=== PATIENT | female | born 1970 | race Caucasian/White ===

== ENCOUNTER 2018-01-10 23:30 | Observation (INO) ==
[2018-01-11] MEDS ORDERED: Pantoprazole Inj 80 MG in Sodium Chlor 0.9% Inj 35 ML IV.SIG ONE (04:20)
[2018-01-11] MEDS ORDERED: Morphine Sulfate Inj 2 MG/ML Vial IV.PUSH PRN (04:21)
[2018-01-11] MEDS ORDERED: Morphine Inj 4 MG/ML Vial IV.PUSH PRN (04:21)
[2018-01-11] MEDS ORDERED: Naloxone Inj 0.4 MG/ML Vial IV.PUSH PRN (04:21)
[2018-01-11] MEDS: Morphine Inj 4 MG/ML Vial IV.PUSH PRN ×2 (04:33→08:26)
[2018-01-11] MEDS: Piperacil/Tazo 4.5 GM Premix 4.5 GM/100 ML BAG IV.SIG SCH ×4 (04:49→22:51)
[2018-01-11] MEDS: Sod Chloride 0.9% Inj 1,000 ML IV.CONT SCH ×2 (05:16→14:42)
[2018-01-11] MEDS ORDERED: HYDROmorphone PF Inj 2 MG/ML Vial IV.PUSH ONE (05:20)
--- NOTE | 2018-01-11 10:22 | P.HP ---
History of Present Illness Service: Hospitalist Primary Care Physician: UNKNOWN Chief Complaint: Abdominal pain History of Present Illness: Ms. Madera a pleasant 47-year-old female with a history of multiple intra- abdominal surgery including gastric bypass, cholecystectomy, appendectomy who presented to the emergency department in [place] due to right lower quadrant abdominal pain radiating to her back. She usually has persistent chronic back pain and she follows up with pain management physician in the outpatient setting. However day prior to this admission, patient started having right lower quadrant abdominal pain. She had some nausea but no vomiting. No hematemesis, melena or hematochezia. Her last bowel movement was 2 days prior to this admission. No fever or chills. She denies any chest pain, shortness of breath. No changes in bladder habits. CT abdomen pelvis on 01/11/2018 shows small amount of focal air in the anterior upper abdomen either within decompressed segments of small bowel or small foci of free air. General surgery was consulted. Patient was admitted to the main hospital. Past medical history: Chronic back pain GERD Past surgical history: Gastric bypass surgery, cholecystectomy, appendectomy, hernia repair Social history: Patient smokes about 1 pack/week. She denies using illicit drugs or alcohol. Family history: Mother had hypothyroidism. Review of Systems All other systems reviewed negative except as stated in HPI [facility] - History History Provided By: Patient - Medical History Medical History: Medical History (Last Reviewed 01/10/18 @ 23:38 by Chace Bryant RN) Anemia Bile duct stone Complications of gastric bypass surgery Fistula Inguinal hernia - Surgical History Surgical History: Surgical History (Last Reviewed 01/10/18 @ 23:38 by Chace Bryant RN) Gastric bypass status for obesity History of partial gastrectomy Hx of appendectomy Hx of inguinal hernia repair - Tobacco History Second Hand Smoke Exposure: Yes Tobacco Use In Past 30 Days: Yes Smoking Status: Current every day smoker Tobacco Type: Cigarettes - Alcohol History How Often Do You Have a Drink Containing Alcohol: Never - Substance Use History Substance History: No History of Abuse Medications and Allergies Active Medications: Active Medications Sodium Chloride (Ns Inj) 1,000 mls @ 100 mls/hr IV.CONT .Q10H ABDI Last Admin: 01/11/18 05:16 Dose: 100 mls/hr Piperacillin/Tazobactam/Dextrose (Zosyn 4.5 Gm Premix) 4.5 gm in 100 mls @ 200 mls/hr IV.SIG Q6H [facility] Last Infusion: 01/11/18 07:00 Dose: Infused Morphine Sulfate (Morphine Inj) 4 mg IV.PUSH Q3H PRN PRN Reason: PAIN 6-10;IF UNABLE TO TAKE PO Last Admin: 01/11/18 08:26 Dose: 4 mg Morphine Sulfate (Morphine Inj) 4 mg IV.PUSH Q3H PRN PRN Reason: BREAKTHROUGH PAIN Morphine Sulfate (Morphine Inj) 2 mg IV.PUSH Q3H PRN PRN Reason: PAIN 3-5; IF UABLE TO TAKE PO Naloxone HCl (Narcan Inj) 0.4 mg IV.PUSH UNSCH PRN PRN Reason: SEE LABEL COMMENTS Ondansetron HCl (Zofran Inj) 4 mg IV.PUSH Q6H PRN PRN Reason: NAUSEA OR VOMITING Last Admin: 01/11/18 04:32 Dose: 4 mg Ondansetron HCl (Zofran Odt) 4 mg PO Q6H PRN PRN Reason: NAUSEA OR VOMITING Pantoprazole Sodium (Protonix Inj) 40 mg IV.PUSH Q12H [facility] Allergies Allergy/AdvReac Type Severity Reaction Status Date / Time ketorolac Allergy Unknown WELTS Verified 01/10/18 23:33 NSAIDS (Non-Steroidal Allergy Anaphylaxis Verified 01/10/18 23:33 Anti-Inflamma promethazine [From Phenergan] Allergy Anaphylaxis Verified 01/10/18 23:33 Home Medications Medication Instructions Recorded Confirmed Type hydrocodone-acetaminophen 1 tab PO Q6H PRN MDD 300 12/13/17 01/10/18 History pantoprazole [Protonix] 40 mg PO DAILY 12/13/17 01/10/18 History venlafaxine [Effexor XR] 225 mg PO DAILY 12/13/17 01/10/18 History topiramate [Topamax] 100 mg PO BID PRN 01/10/18 01/10/18 History Exam Vital signs: Vital Signs 01/11/18 04:23 01/11/18 05:06 01/11/18 06:21 Temperature 98.7 F Pulse Rate 66 Respiratory Rate 18 16 16 Blood Pressure 104/69 Pulse Oximetry 99 01/11/18 08:00 Temperature 97.8 F Pulse Rate 60 Respiratory Rate 16 Blood Pressure 96/65 L Pulse Oximetry 95 Intake & Output 01/10/18 01/11/18 01/11/18 18:59 06:59 18:59 Intake Total 0 / 0 135 / 135 Balance 0 / 0 135 / 135 Intake: IV 0 / 0 135 / 135 Protonix Inj 80 MG In NS Inj 35 0 / 0 35 / 35 ML @ 420 mls/hr IV.SIG BOLUS ONE Rx#:[id number] Zosyn 4.5 GM Premix 4.5 gm In 0 / 0 100 / 100 100 ml @ 200 mls/hr IV.SIG Q6H ABDI Rx#:[id number] Other: # Voids 1 Narrative: GENERAL: This is a well-nourished, well-developed patient, in no apparent distress. SKIN: No rashes, ecchymoses or lesions. Warm and dry. HEAD: Atraumatic. Normocephalic. No temporal or scalp tenderness. EYES: Pupils equal round and reactive. No injection or drainage. ENT: Nose without bleeding, purulent drainage or septal hematoma. Airway patent. NECK: Trachea midline. No lymphadenopathy. Supple, nontender, no meningeal signs. CARDIOVASCULAR: Regular rate and rhythm without murmurs, gallops, or rubs. No JVD. RESPIRATORY: Clear to auscultation. Breath sounds equal bilaterally. No wheezes , rales, or rhonchi. GASTROINTESTINAL: Abdomen soft, significant tenderness present in the right lower quadrant and mild tenderness in the umbilical area, nondistended. No guarding. MUSCULOSKELETAL: Extremities without clubbing, cyanosis, or edema. NEUROLOGICAL: Awake and alert. Cranial nerves II through XII intact. No focal neurological deficits. Normal speech. Results - Labs CBC & Chem 7: 01/12/18 03:37 01/12/18 03:37 - Imaging CT abdomen pelvis 01/11/2018 CONCLUSION: 1. Small amounts of focal air in the anterior upper abdomen either within decompressed segments of small bowel or small foci of free air. 2. Distended bowel in the upper abdomen mainly related to the colon. 3. Status post gastric bypass procedure. 4. Status post cholecystectomy. 5. IVC filter. 6. 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 Caprini VTE Risk Assessment Caprini VTE Risk Assessment: No/Low Risk (score <= 1) Caprini Risk Assessment Model: Point Value = 1 Point Value = 2 Point Value = 3 Point Value = 5 Age 41-60 Minor surgery BMI > 25 kg/m2 Swollen legs Varicose veins or History of unexplained or recurrent spontaneous Oral contraceptives or hormone replacement Sepsis (< 1 month) Serious lung disease, including pneumonia (< 1 month) Abnormal pulmonary function Acute myocardial infarction Congestive heart failure (< 1 month) History of inflammatory bowel disease Medical patient at bed rest Age 61-74 Arthroscopic surgery Major open surgery (> 45 min) Laparoscopic surgery (> 45 min) Malignancy Confined to bed (> 72 hours) Immobilizing plaster cast Central venous access Age >= 75 History of VTE Family history of VTE Factor V Leiden Prothrombin [id number] Lupus anticoagulant Anticardiolipin antibodies Elevated serum homocysteine Heparin-induced thrombocytopenia Other congenital or acquired thrombophilia Stroke (< 1 month) Elective arthroplasty Hip, pelvis, or leg fracture Acute spinal cord injury (< 1 month) Prophylaxis Regimen: Total Risk Factor Score Risk Level Prophylaxis Regimen 0-1 Low Early ambulation 2 Moderate Order ONE of the following: *Sequential Compression Device (SCD) *Heparin 5000 units SQ BID 3-4 Higher Order ONE of the following medications: *Heparin 5000 units SQ TID *Enoxaparin/Lovenox 40 mg SQ daily (WT < 150 kg, CrCl > 30 mL/min) *Enoxaparin/Lovenox 30 mg SQ daily (WT < 150 kg, CrCl > 10-29 mL/min) *Enoxaparin/Lovenox 30 mg SQ BID (WT < 150 kg, CrCl > 30 mL/min) AND/OR *Sequential Compression Device (SCD) 5 or more Highest Order ONE of the following medications: *Heparin 5000 units SQ TID (Preferred with Epidurals) *Enoxaparin/Lovenox 40 mg SQ daily (WT < 150 kg, CrCl > 30 mL/min) *Enoxaparin/Lovenox 30 mg SQ daily (WT < 150 kg, CrCl > 10-29 mL/min) *Enoxaparin/Lovenox 30 mg SQ BID (WT < 150 kg, CrCl > 30 mL/min) AND *Sequential Compression Device (SCD) Assessment and Plan - Plan Ms. Madera a pleasant 47-year-old female with a history of multiple intra- abdominal surgery including gastric bypass, cholecystectomy, appendectomy who presented to the emergency department in [place] due to right lower quadrant abdominal pain radiating to her back. CT abd/pelvis shows some free air. General surgery was consulted. Intra abdominal free air Abdominal pain Possible abdominal ulcer -Appreciate General surgery input. -Will provide supportive care with pain meds, fluid -start PPI and continue Zosyn. -General surgery wants to consider EGD on Saturday Full code. SCDs.
[2018-01-11] MEDS ORDERED: Acetaminophen 325 MG Tablet PO PRN (12:50)
[2018-01-11] MEDS: HYDROmorphone PF Inj 2 MG/ML Vial IV.PUSH PRN ×3 (13:12→21:54)
[2018-01-11] MEDS: Pantoprazole Inj 40 MG Vial IV.PUSH SCH (20:31)
--- NOTE | 2018-01-11 21:50 | MB ---
cc: Jonathan Benjamin MD DATE: 01/11/2018 CHIEF COMPLAINT: Abdominal pain, rule out free air, history of gastric bypass. 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 HISTORY OF PRESENT ILLNESS: The patient is a 47-year-old female with a complex medical and surgical history. Patient is noted to have a history of morbid obesity, who underwent gastric bypass in [place] in 2002. She has had multiple revisions and resections. 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 She further has a history of appendectomy, cholecystectomy. The patient presents with acute onset of 10/10 pain yesterday. She states the pain is somewhat intermittent, comes and goes. Occasionally, 8/10. She does have some associated nausea. She denies any fevers or chills. Denies any significant change in bowel habits. She does admit to smoking cigarettes, approximately 1 pack per week. She denies further any NSAID usage. She states she takes her vitamins and she has had pretty good success, otherwise with weight loss following her surgery. She had further workup including a CT scan with questionable free intraperitoneal air on CT scan. She has a WBC of 4. PAST MEDICAL HISTORY: Morbid obesity, history of gastrogastric fistula, history of multiple surgeries, history of reflux. PAST SURGICAL HISTORY: Open gastric bypass 2002, history of excision of gastrogastric fistula 2014, attempted endoscopic repair x4, history of exploratory laparotomy, lysis of adhesions, a GJ resection 2016, history of abdominal wall hernia with mesh x2, history of appendectomy, laparoscopic cholecystectomy. MEDICATIONS: See EMR. ALLERGIES: KETOROLAC and NSAIDS. FAMILY HISTORY: Denies diabetes or hypertension. SOCIAL HISTORY: Smokes 1 pack per week. Denies ETOH or IVDA. REVIEW OF SYSTEMS: GENERAL: The patient denies fevers, chills. HEENT: Denies eye pain, ear pain. NECK: Denies swelling or pain. LUNGS: Denies cough or wheeze. HEART: Denies palpitations or chest pain. ABDOMEN: Complains of nausea and abdominal pain. GENITOURINARY: Denies dysuria or hematuria. ENDOCRINE: Denies polyuria or polydipsia. INTEGUMENT: Denies any masses or lesions. PSYCHIATRIC: Denies change in mood or sensorium. PHYSICAL EXAMINATION: GENERAL: The patient no acute distress. VITAL SIGNS: Temperature 98.7, pulse 66, respirations 18, blood pressure 104/69, saturation 99%. HEENT: Pupils equal, round, reactive. NECK: Supple. Trachea midline. LUNGS: Clear to auscultation, bilateral expansion. HEART: S1, S2 regular. ABDOMEN: Soft. Positive tenderness to palpation, diffuse, more tenderness in epigastric area and pelvic area. EXTREMITIES: Warm and well perfused. NEUROLOGIC: GCS of 15, 5/5 motor in all extremities. INTEGUMENT: No obvious mass or lesion. PSYCHIATRIC: Appropriate mood, appropriate insight. LABORATORY AND DIAGNOSTIC DATA: WBC 3.6, hemoglobin 10, hematocrit 30, platelets 196. Sodium 137, potassium 3.9, chloride 104, CO2 27, AST 14, ALT 14, alkaline phosphatase 126, calcium 8.3, protein 72, lipase 23. CT scan reviewed by myself. Evidence of gastric bypass anatomy. The patient with questionable intraperitoneal air. I reviewed the films with Dr. Calderon, radiology, and it appears that the free air might actually be contained within the loop of bowel and not actually free intraperitoneal. ASSESSMENT AND PLAN: The patient is a 47-year-old female with history of a complex medical and surgical history, presents with a questionable intra-abdominal free air and abdominal pain. Concern for gastrojejunal ulcer PLAN: After full clinical, radiological and laboratory workup, patient with the above above-named issues. At this point, I recommend at least observation, prophylactic antibiotic. The patient does have abdominal pain, uncertain whether questionable free air is etiology or not. I less favor free intraperitoneal air and more favor that air appears to be within the bowel. I reviewed films with radiology. My potential concern for abdominal pain is gastrojejunostomy ulcers as the patient is a smoker and has a significant history of gastrogastric fistulas and resection and multiple surgical interventions in the past. At this point, I recommend again observation, recheck labs, initial n.p.o., IV fluids. We will consider doing an endoscopy on Saturday for evaluation of gastrojejunostomy pouch and rule out possible ulcers. The patient will also benefit from Protonix. MD JENNIFER Trinh/chas , 07:11 PM , 07:24 PM VERITO
[2018-01-12] MEDS: Sod Chloride 0.9% Inj 1,000 ML IV.CONT SCH ×3 (00:28→21:18)
[2018-01-12] MEDS: HYDROmorphone PF Inj 2 MG/ML Vial IV.PUSH PRN ×5 (02:44→21:20)
[2018-01-12 04:08] LABS: Baso % (Auto) 0.1 % (0.0-2.0); Eos % (Auto) 0.1 % (0.0-4.0); Hematocrit 25.5 % (35.0-46.0); Hemoglobin 8.3 gm/dL (11.6-15.3); Mean Corpuscular HGB Conc 32.5 % (32.0-36.0); Mean Corpuscular Hemoglobin 25.2 pg (27.0-34.0); Mean Corpuscular Volume 77.6 fL (80.0-100.0); Mean Platelet Volume 6.5 fL (7.0-11.0); Mono # (Auto) 0.2 th/mm3 (0.0-0.9); Mono % (Auto) 10.2 % (0.0-8.0); Neut # (Auto) 1.1 th/mm3 (1.8-7.7); Neut % (Auto) 47.6 % (16.0-70.0); Platelet Count 159 th/mm3 (150-450); Red Blood Count 3.28 mil/mm3 (4.00-5.30); Red Cell Distribution Width 15.1 % (11.6-17.2); White Blood Count 2.3 th/mm3 (4.0-11.0)
[2018-01-12 04:32] LABS: Alanine Aminotransferase 16 U/L (10-53); Albumin 2.9 g/dL (3.4-5.0); Anion Gap 7 meq/L (5-15); Aspartate Aminotransferase 17 U/L (15-37); Blood Urea Nitrogen 7 mg/dL (7-18); Calcium 8.1 mg/dL (8.5-10.1); Carbon Dioxide 27.6 meq/L (21.0-32.0); Chloride 111 meq/L (98-107); Glomerular Filtration Rate 82 mL/min (>89); Glucose,Random 75 mg/dL (74-106); Potassium 3.9 meq/L (3.5-5.1); Sodium 146 meq/L (136-145)
[2018-01-12 04:34] LABS: Alkaline Phosphatase 102 U/L (45-117); Total Protein 6.1 g/dL (6.4-8.2)
[2018-01-12] MEDS: Piperacil/Tazo 4.5 GM Premix 4.5 GM/100 ML BAG IV.SIG SCH ×4 (04:58→22:13)
[2018-01-12] MEDS: Pantoprazole Inj 40 MG Vial IV.PUSH SCH ×2 (08:56→21:19)
--- NOTE | 2018-01-12 15:33 | P.PN ---
Subjective Interval history: Follow up for abdominal pain. She complains of inadequate pain control. No fever , chills. Physical Exam Vital signs: Vital Signs 01/11/18 16:00 01/11/18 19:50 01/11/18 22:50 Temperature 97.9 F 98.6 F Pulse Rate 55 L 54 L Respiratory Rate 14 18 16 Blood Pressure 99/55 L 98/61 L Pulse Oximetry 98 99 01/11/18 23:17 01/12/18 03:38 01/12/18 08:00 Temperature 99 F 98.7 F 98.7 F Pulse Rate 57 L 56 L 56 L Respiratory Rate 18 16 16 Blood Pressure 108/65 106/59 L 107/69 Pulse Oximetry 97 97 99 01/12/18 08:57 01/12/18 12:00 Temperature 98.7 F Pulse Rate 55 L Respiratory Rate 18 16 Blood Pressure 108/72 Pulse Oximetry 97 Intake & Output 01/11/18 01/12/18 01/12/18 18:59 06:59 18:59 Intake Total 1335 / 1335 1200 / 1200 1100 / 1100 Balance 1335 / 1335 1200 / 1200 1100 / 1100 Intake: IV 1335 / 1335 1200 / 1200 1100 / 1100 NS Inj 1,000 ML @ 100 mls/hr IV 1000 / 1000 1000 / 1000 1000 / 1000 .CONT .Q10H ABDI Rx#:[id number] Protonix Inj 80 MG In NS Inj 35 35 / 35 ML @ 420 mls/hr IV.SIG BOLUS ONE Rx#:[id number] Zosyn 4.5 GM Premix 4.5 gm In 300 / 300 200 / 200 100 / 100 100 ml @ 200 mls/hr IV.SIG Q6H ABDI Rx#:[id number] Oral 0 / 0 Other: # Voids 1 0 Narrative: GENERAL: This is a well-nourished, well-developed patient, in no apparent distress. SKIN: No rashes, ecchymoses or lesions. Warm and dry. HEAD: Atraumatic. Normocephalic. No temporal or scalp tenderness. EYES: Pupils equal round and reactive. No injection or drainage. ENT: Nose without bleeding, purulent drainage or septal hematoma. Airway patent. NECK: Trachea midline. No lymphadenopathy. Supple, nontender, no meningeal signs. CARDIOVASCULAR: Regular rate and rhythm without murmurs, gallops, or rubs. No JVD. RESPIRATORY: Clear to auscultation. Breath sounds equal bilaterally. No wheezes , rales, or rhonchi. GASTROINTESTINAL: Abdomen soft, significant tenderness present in the right lower quadrant and mild tenderness in the umbilical area, nondistended. No guarding. MUSCULOSKELETAL: Extremities without clubbing, cyanosis, or edema. NEUROLOGICAL: Awake and alert. Cranial nerves II through XII intact. No focal neurological deficits. Normal speech. Results - Labs CBC & Chem 7: 01/12/18 03:37 01/12/18 03:37 Laboratory Results - last 24 hr 01/12/18 01/12/18 03:37 03:37 WBC 2.3 L RBC 3.28 L Hgb 8.3 L Hct 25.5 L MCV 77.6 L D MCH 25.2 L MCHC 32.5 RDW 15.1 Plt Count 159 MPV 6.5 L Neut % (Auto) 47.6 Lymph % (Auto) 42.0 [place] % (Auto) 10.2 H Eos % (Auto) 0.1 Baso % (Auto) 0.1 Neut # (Auto) 1.1 L Lymph # (Auto) 1.0 [place] # (Auto) 0.2 Eos # (Auto) 0.0 Baso # (Auto) 0.0 WBC Differential . Differential Comment Auto diff final Sodium 146 H Potassium 3.9 D Chloride 111 H Carbon Dioxide 27.6 Anion Gap 7 BUN 7 Creatinine 0.76 Estimated GFR 82 L Random Glucose 75 Calcium 8.1 L D Total Bilirubin 0.3 AST 17 ALT 16 Alkaline Phosphatase 102 Total Protein 6.1 L D Albumin 2.9 L D Assessment and Plan - Plan Ms. Santy joseph pleasant 47-year-old female with a history of multiple intra- abdominal surgery including gastric bypass, cholecystectomy, appendectomy who presented to the emergency department in [place] due to right lower quadrant abdominal pain radiating to her back. CT abd/pelvis shows some free air. General surgery was consulted. Intra abdominal free air Abdominal pain Possible abdominal ulcer -Appreciate General surgery input. -Will provide supportive care with pain meds, fluid -Continue PPI and continue Zosyn. -Probably EGD tomorrow. Full code. SCDs. Discharge plan: Depending on EGD finding, possible discharge on 01/13/2018.
[2018-01-13] MEDS: HYDROmorphone PF Inj 2 MG/ML Vial IV.PUSH PRN ×3 (02:15→15:50)
[2018-01-13] MEDS: Piperacil/Tazo 4.5 GM Premix 4.5 GM/100 ML BAG IV.SIG SCH ×2 (05:09→13:20)
[2018-01-13] MEDS: Sod Chloride 0.9% Inj 1,000 ML IV.CONT SCH (07:08)
--- NOTE | 2018-01-13 08:41 | GIPROC ---
[facility] [address] [facility]. [facility], [address] EGD PROCEDURE REPORT EXAM DATE: 01/13/2018 PATIENT NAME: Leatha Lei MR #: [id number] BIRTHDATE: 1970 ATTENDING: Jonathan Benjamin MD ORDER #: [id number] SHEET CUTTER: Orestes Hoover and Sena Joya STATUS: inpatient INDICATIONS: The patient is a 47 yr old female here for an EGD due to abdominal pain, r/o gastrogastrofistula,evaluation for ulcer, hx of gastric bypass, hx of gastrogastro fistula, multiple revisions PROCEDURE PERFORMED: EGD, diagnostic MEDICATIONS: None and Per Anesthesia. TOPICAL ANESTHETIC: none CONSENT: The patient understands the risks and benefits of the procedure and understands that these risks include, but are not limited to: sedation, allergic reaction, infection, perforation and/or bleeding. Alternative means of evaluation and treatment include, among others: physical exam, x-rays, and/or surgical intervention. The patient elects to proceed with this endoscopic procedure. medical equipment was checked for proper function. Hand hygiene and appropriate measures for infection prevention was taken. After the risks, benefits and alternatives of the procedure were thoroughly explained, Informed consent was verified, confirmed and timeout was successfully executed by the treatment team. The patient was anesthetized with anesthesia and the Pentax [id number] endoscope was introduced through the mouth and advanced to the anastomosis. Retroflexion was not performed The gastroscope was then slowly withdrawn and removed. Double blind limb, pouch length 6cm, blind limb of gj 5cm, proximal blind limb 4cm. ADVERSE EVENTS: There were no complications. IMPRESSIONS: 1. Double blind limb, pouch length 6cm, blind limb of gj 5cm, proximal blind limb 4cm 2. Retroflexion was not performed RECOMMENDATIONS: 1. Avoid NSAIDS 2. Stop smoking PATIENT CONDITION: fair DISPOSITION: Inpatient REPEAT EXAM: NONE Jonathan Benjamin MD eSigned: Jonathan Benjamin MD 01/13/2018 8:40 AM cc:
[2018-01-13] MEDS ORDERED: Metoprolol Tartrate 25 MG Tablet PO ONE (08:43)
[2018-01-13] MEDS ORDERED: Chlorhexidine Gluconate 2% 1 Pack (2 Cloths) TOPICAL ONE (08:43)
[2018-01-13 08:50] VITALS: TEMP 97
[2018-01-13] MEDS ORDERED: Sodium Chlor 0.9% Inj 500 ML IV.SIG SCH (09:00)
[2018-01-13] MEDS: Pantoprazole Inj 40 MG Vial IV.PUSH SCH (09:55)
[2018-01-13 12:29] VITALS: BP 109/66; PULSE 48; RESP 16; O2SAT 95
--- NOTE | 2018-01-13 14:03 | P.DS ---
Date of admission: 01/11/18 03:56 Primary care physician: UNKNOWN Brief History from admission: Ms. Madera a carmen 47-year-old female with a history of multiple intra- abdominal surgery including gastric bypass, cholecystectomy, appendectomy who presented to the emergency department in [place] due to right lower quadrant abdominal pain radiating to her back. She usually has persistent chronic back pain and she follows up with pain management physician in the outpatient setting. However day prior to this admission, patient started having right lower quadrant abdominal pain. She had some nausea but no vomiting. No hematemesis, melena or hematochezia. Her last bowel movement was 2 days prior to this admission. No fever or chills. She denies any chest pain, shortness of breath. No changes in bladder habits. CT abdomen pelvis on 01/11/2018 shows small amount of focal air in the anterior upper abdomen either within decompressed segments of small bowel or small foci of free air. General surgery was consulted. Patient was admitted to the main hospital. Past medical history: Chronic back pain GERD Past surgical history: Gastric bypass surgery, cholecystectomy, appendectomy, hernia repair Social history: Patient smokes about 1 pack/week. She denies using illicit drugs or alcohol. Family history: Mother had hypothyroidism. DS: Summary Hospital Course: Ms. Madera a carmen 47-year-old female with a history of multiple intra- abdominal surgery including gastric bypass, cholecystectomy, appendectomy who presented to the emergency department in [place] due to right lower quadrant abdominal pain radiating to her back. CT abd/pelvis shows some free air. General surgery was consulted. Intra abdominal free air Abdominal pain Possible abdominal ulcer -Appreciate General surgery input. -Will provide supportive care with pain meds, fluid -Continued PPI and continue Zosyn. -EGD did not show any acute findings. General surgery cleared for discharge. On the day of discharge, 01/13/2018 - patient became very upset that her right lower quadrant pain has not improved. I went over the CT abdomen/Pelvis findings which did not reveal any acute findings. She is ambulating well. She is tachycardic or hypertensive to indirectly indicate acute severe pain. She becomes tearful regarding her pain, however. We obtained an US study of her pelvic area. No acute findings. We recommended patient to follow up with her doctors in the outpatient setting. Patient does not want to take NSAIDs because of some allergy. She follows up with Pain management doctor. Patient is hemodynamically stable, tolerating diet well, ambulating without any difficulty. We subsequently discharged patient home. - Time Spent with Patient Total time spent providing and/or coordinating discharge services: Less than 30 minutes - Quality: VTE Deep Vein Thrombosis/Pulmonary Embolism Present on Admission: No Exam Vital signs: Vital Signs 01/12/18 19:38 01/13/18 00:00 01/13/18 04:00 Temperature 97.9 F 98.2 F 97.7 F Pulse Rate 63 55 L 56 L Respiratory Rate 19 18 17 Blood Pressure 110/78 104/69 102/59 L Pulse Oximetry 100 98 98 01/13/18 08:48 01/13/18 08:57 01/13/18 12:00 Temperature 97 F L 97 F L Pulse Rate 71 71 48 L Respiratory Rate 20 20 16 Blood Pressure 122/67 108/72 109/66 Pulse Oximetry 96 97 95 Intake & Output 01/12/18 01/13/18 01/13/18 18:59 06:59 18:59 Intake Total 1200 / 1200 1140 / 1140 400 / 400 Balance 1200 / 1200 1140 / 1140 400 / 400 Intake: IV 1200 / 1200 1100 / 1100 400 / 400 NS Inj 1,000 ML @ 100 mls/hr IV 1000 / 1000 1000 / 1000 0 / 0 .CONT .Q10H ABDI Rx#:[id number] LR 1000 mL Inj 1,000 ML @ 30 300 / 300 mls/hr IV.SIG .Q24H ABDI Rx#: [id number] Zosyn 4.5 GM Premix 4.5 gm In 200 / 200 100 / 100 100 / 100 100 ml @ 200 mls/hr IV.SIG Q6H ABDI Rx#:[id number] Oral 40 / 40 Other: # Voids 2 1 Narrative: GENERAL: This is a well-nourished, well-developed patient, in no apparent distress. SKIN: No rashes, ecchymoses or lesions. Warm and dry. HEAD: Atraumatic. Normocephalic. No temporal or scalp tenderness. EYES: Pupils equal round and reactive. No injection or drainage. ENT: Nose without bleeding, purulent drainage or septal hematoma. Airway patent. NECK: Trachea midline. No lymphadenopathy. Supple, nontender, no meningeal signs. CARDIOVASCULAR: Regular rate and rhythm without murmurs, gallops, or rubs. No JVD. RESPIRATORY: Clear to auscultation. Breath sounds equal bilaterally. No wheezes , rales, or rhonchi. GASTROINTESTINAL: Abdomen soft, significant tenderness present in the right lower quadrant and mild tenderness in the umbilical area, nondistended. No guarding. MUSCULOSKELETAL: Extremities without clubbing, cyanosis, or edema. NEUROLOGICAL: Awake and alert. Cranial nerves II through XII intact. No focal neurological deficits. Normal speech. Results Procedures completed during hospitalization: EGD 01/13/2018 IMPRESSIONS: 1. Double blind limb, pouch length 6cm, blind limb of gj 5cm, proximal blind limb 4cm 2. Retroflexion was not performed Discharge Plan - Discharge Disposition Patient Disposition: Discharge Home - Discharge Condition Condition: Good - Discharge Order Discharge Orders: Discharge Order (Routine); Ordered 01/13/18 Ordered By: Aba Gallardo - Discharge Details Anticipated Discharge Date: 01/13/18 - Physicians Team Primary Care Provider: UNKNOWN, Attending Provider: Aba Gallardo Other Providers: Jonathan Benjamin MD ; [facility] ; Rambo Solo MD - Rxs /Orders / Referrals /Forms Prescriptions: Continue hydrocodone-acetaminophen 10-325 mg Tablet 1 tab PO Q6H MDD 300 PRN (Reason: Chronic Pain) ondansetron [Zofran ODT] 4 mg tablet,disintegrating 4 mg PO Q6-8H PRN (Reason: nausea and vomiting) Qty: 20 RF: 0 pantoprazole [Protonix] 40 mg Tablet,Delayed Release (Dr/Ec) 40 mg PO DAILY topiramate [Topamax] 100 mg Tablet 100 mg PO BID PRN (Reason: Pain) venlafaxine [Effexor XR] 150 mg Capsule,Extended Release 24hr 225 mg PO DAILY Referrals: UNKNOWN, [Primary Care Provider] - See Instructions (Follow up with PCP within 7 -10 days. Encouraged patient to find a GI doctor as well. ) Forms: Work Release/Restrictions - Discharge Instructions Patient Printed Instructions: Acute Abdominal Pain (DC) - Post Discharge Care Plan Care Plan Goals: Your Health Problems: Goals to Promote Your Health: * To prevent worsening of your condition * To maintain your health at the optimal level Directions to Meet Your Goals: * Take your medications as prescribed * Follow your dietary instruction * Follow activity as directed * Keep your appointments as scheduled * Take your immunizations and boosters as scheduled * If your symptoms worsen call your PCP * If no PCP go to Urgent Care or Emergency Room Smoking is dangerous to your health. Avoid second hand smoke. You may reach the 24-hour crisis hotline for domestic abuse at .
--- NOTE | 2018-01-13 17:09 | US ---
EXAM DATE: 01/13/2018 3:11 PM EDT AGE/SEX: 47 years / Female INDICATIONS: Right lower quadrant pain. CLINICAL DATA: This is the patient's initial encounter. Patient reports that signs and symptoms have been present for 4 - 6 days and indicates a pain score of 7/10. MEDICAL/SURGICAL HISTORY: . Anemia. Bile duct stone. Inguinal hernia. Appendectomy. Gastric by pass surgery. Fistula. Inguinal hernia repair. COMPARISON: [facility], CT ABDOMEN & PELVIS W CONTRAST, 01/11/2018. . MEASUREMENTS: Uterus:__6.7 x 4.3 x 3.2 cm Endometrial Stripe:__6 mm Right Ovary:__ 1.8 x 1.3 x 0.8 cm Left Ovary:__ 2.0 x 1.3 x 0.9 cm FINDINGS: Uterus: The myometrium has homogeneous echotexture without mass. Endometrial Stripe: The endometrial stripe displays homogeneous echotexture. Right Ovary: Ovary contains no mass. Follicles are present. Normal flow. Left Ovary: Ovary contains no mass. Follicles are present. Normal flow. Fluid: Trace free fluid. Other: None. CONCLUSION: 1. Unremarkable pelvic sonogram. Electronically signed by: Octavio Alberto MD 01/13/2018 5:07 PM EDT
== END 2018-01-13 18:32 | disposition home or self-care (01) ==
LOC: NEPGCP 23:30 → PHEDDLT 23:30
PROVIDERS: ADMIT Hospitalist; ATTEND Hospitalist
PROC: PANENDO (2018-01-13 08:15)